=== PATIENT | male | born 1965 | race Caucasian/White ===

== ENCOUNTER 2023-08-16 12:43 | Outpatient (OUT) | payer OTHER, SELFPAY ==
[2023-08-16 13:17] LABS: Basophils Absolute Auto 0.1 10^3/uL (0.0-0.1); Basophils Percent Auto 0.6 % (0.2-2.0); Eosinophils Absolute Auto 0.2 10^3/uL (0.0-0.7); Eosinophils Percent Auto 2.6 % (0.9-7.0); Hematocrit 39.3 % (42.0-54.0); Hemoglobin 13.3 g/dL (14.0-18.0); Immature Granulocytes Abs Auto 0.06 10^3/uL (0.00-0.03); Immature Granulocytes Pct Auto 0.7 % (0.0-0.5); Lymphocytes Absolute Auto 2.1 10^3/uL (1.2-3.8); Lymphocytes Percent Auto 23.1 % (20.5-60.0); Mean Corpuscular HGB Conc 33.8 g/dL (29.9-35.2); Mean Corpuscular Hemoglobin 29.4 pg (25.9-34.0); Mean Corpuscular Volume 86.9 fL (80.0-94.0); Mean Platelet Volume 10.2 fL (9.5-13.5); Monocytes Absolute Auto 0.6 10^3/uL (0.3-0.8); Monocytes Percent Auto 6.9 % (1.7-12.0); Neutrophils Percent Auto 66.1 % (43.0-75.0); Platelet Count 347 10^3/uL (150-450); Red Blood Count 4.52 10^6/uL (4.70-6.10); Red Cell Distribution Width 11.9 % (11.0-15.0); White Blood Count 9.1 10^3/uL (4.0-11.0)
[2023-08-16 14:26] LABS: Bilirubin Urine NEGATIVE (NEGATIVE); Blood Urine NEGATIVE (NEGATIVE); Clarity Urine CLEAR (CLEAR); Color Urine LT. YELLOW (YELLOW); Glucose Urine UA NEGATIVE (NEGATIVE); Ketones Urine NEGATIVE (NEGATIVE); Leukocyte Esterase Urine NEGATIVE (NEGATIVE); Nitrite Urine NEGATIVE (NEGATIVE); Protein Urine NEGATIVE (NEG/TRACE); Urobilinogen Urine 0.2 EU/dL (0.2-1.0)
[2023-08-16 14:28] LABS: Estimated Average Glucose 148 mg/dL; Glycohemoglobin A1C 6.8 % (4.5-6.2)
[2023-08-16 14:37] LABS: Bacteria Urine NONE SEEN #/HPF (NONE SEEN); Cast Seen? NONE SEEN #/LPF (NONE SEEN); Crystals Seen? None Seen #/HPF (None Seen); Mucus Urine NONE SEEN (NONE SEEN); RBC Urine 0-2 #/HPF (0-2); Squamous Epithelial Cell Urine NONE SEEN #/LPF (NONE/RARE); WBC Urine 0-2 #/HPF (NONE SEEN)
[2023-08-16 14:40] LABS: Percent Iron Saturation 30.7 %
[2023-08-16 14:49] LABS: Prostate Specific Antigen Scrn 0.65 ng/mL (<=4.00)
[2023-08-16 15:10] LABS: Free T4 0.74 ng/dL (0.76-1.46)
[2023-08-16 15:26] LABS: Chloride 100 mmol/L (98-107); Potassium 3.6 mmol/L (3.5-5.1); Sodium 138 mmol/L (136-145)
[2023-08-16 15:27] LABS: Anion Gap 11.6; Aspartate Amino Transferase 18 U/L (15-37); BUN Creatinine Ratio 13.9; Bilirubin Total 0.9 mg/dL (0.2-1.0); Calcium 9.2 mg/dL (8.5-10.1); Estimated GFR (African America >60 (>=60); Estimated GFR (Non-African Ame >60 (>=60); Glucose 90 mg/dL (74-106)
[2023-08-16 15:28] LABS: Alanine Aminotransferase 32 U/L (16-63); Albumin Globulin Ratio 1.1; Alkaline Phosphatase 109 U/L (46-116); Globulin 3.8 g/dL; Total Protein 7.8 g/dL (6.4-8.2); Triglycerides 190 mg/dL (<=150)
[2023-08-16 15:29] LABS: Chol HDL Ratio 4.9; Cholesterol 181 mg/dL (<=200); HDL Cholesterol 37 mg/dL (40-60); Thyroid Stimulating Hormone 1.988 uIU/mL (0.358-3.740)
[2023-08-17 08:10] LABS: Triiodothyronine (T3) 123 ng/dL (71-180)
== END 2023-08-16 12:44 | disposition home or self-care (01) ==
LOC: LAB 12:48
PROVIDERS: PCP Family Medicine; Visit Provider Family Medicine
DX: Z79.899 Other long term (current) drug therapy (principal); R35.1 Nocturia; R73.9 Hyperglycemia, unspecified; E61.1 Iron deficiency; E06.3 Autoimmune thyroiditis; Z12.5 Encounter for screening for malignant neoplasm of prostate; E78.5 Hyperlipidemia, unspecified
CPT/HCPCS: 36415; 80053; 80061; 81001; 82728; 83036; 83540; 83550; 84439; 84443; 84480; 85025; 87086; G0103